=== PATIENT | male | born 1980 | race Caucasian/White ===

== ENCOUNTER 2016-10-23 14:33 | Emergency (ER) | payer OTHER ==
[~2016-10-23] VITALS: Ht 167.6 cm; Wt 88.5 kg
[~2016-10-23 14:33] MED LIST: ACTICIN 5% 60GM60 GM TOP; ALPRAZOLAM2 MG PO; AMITRIPTYLINE50 MG PO; AMPHETAMINE SAL30 MG PO; ANTIVERT 25MG #1 PAC PO; BENTYL10 MG PO; BILTRICIDE600 MG PO; ELAVIL25 MG PO; MULTIVITAMIN1 TAB PO; NEURONTIN300 MG PO; REMERON30 M1 PO; SEROQUEL 25MG25 MG PO; SUBOXONE 8 MG-21 FIL SL; ZOFRAN4 M1 SL
--- NOTE | 2016-10-23 16:21 | ED GI/GU/ABDOMINAL COMPLAINT ---
History of Present Illness General Chief Complaint: Abdominal Pain/Flank Pain Stated Complaint: ABD PAIN Source: patient Exam Limitations: no limitations Vital Signs & Intake/Output Vital Signs & Intake/Output Vital Signs Date Time Temp Pulse Resp B/P Pulse O2 O2 Flow FiO2 Ox Delivery Rate 10/23 1449 99.5 114 18 149/100 96 Room Air Room Air Allergies Coded Allergies: haloperidol (From HALDOL) (MUSCLES TIGHTEN UP, HEAD GOES BACK AND CANT TALK 03/03) trazodone (NIGHT TERRORS AND BAD ANXIETY 10/23/16) Reconcile Medications Amitriptyline HCl 150 MG TABLET 1 TAB PO QPM PAIN (Reported) Gabapentin 600 MG TABLET 1 TAB PO TID PAIN (Reported) Triage Note: TRIAGE: 36 Y/O MALE PRESENTS C/O LEFT LOWER ABDOMINAL PAIN 01/24. "KEEP IN MIND MY SCALE IS REALLY HIGH. IF IT WERE A TEN, IT'D HAVE TO BE REALLY BAD." REPORTS HISTORY OF HEPATITIS C, ASCITES, ENLARGED SPLEEN. Triage Nurses Notes Reviewed? yes Onset: Gradual Duration: week(s): (2) Timing: recent history Quality/Severity: moderate Location: left upper quadrant Radiation: no radiation Activities at Onset: none Modifying Factors: Worsens With: movement, palpation. HPI: 36 y/o male h/o HEP C, new diagnosis, positive ascites currently being worked up who presents to the ER for chief complaint of epigastric pain, ruq, luq pain starting 2 weeks ago but progressively getting worse. Also reports blood in stool. He was actually at outpatient ultrasound with a request from Dr. Hoover with a request but was told by staff that if he had pain he should come to the ER first. Denies fever or chills. Positive reflux symptoms. Denies history of alcohol, admits to previous drug use. Past History Travel History Traveled to [place] past 21 day No Medical History Any Pertinent Medical History? see below for history Neurological: NONE EENT: NONE Cardiovascular: hypertension Respiratory: NONE Gastrointestinal: NONE Hepatic: NONE Renal: NONE Musculoskeletal: NONE Psychiatric: anxiety, depression Endocrine: NONE Blood Disorders: NONE Cancer(s): NONE RIB BENDER/Reproductive: NONE History of MRSA: No History of VRE: No History of CDIFF: No Surgical History Surgical History: non-contributory Psychosocial History Who do you live with Patient/Self Services at Home None What is your primary language Korean Tobacco Use: Current Daily Use Daily Tobacco Use Amount/Type: => 5 Cigarettes daily ETOH Use: denies use Illicit Drug Use: denies illicit drug use Family History Hx Contributory? No Review of Systems Review of Systems Constitutional: Denies: chills, fever. EENTM: Reports: no symptoms. Respiratory: Reports: no symptoms. Cardiovascular: Reports: no symptoms. GI: Reports: abdominal pain, nausea. Denies: vomiting. Genitourinary: Reports: no symptoms. Musculoskeletal: Reports: no symptoms. Skin: Reports: no symptoms. Neurological/Psychological: Reports: no symptoms. Hematologic/Endocrine: Reports: bleeding. Denies: bruising, polyuria, polydipsia. Immunologic/Allergic: Denies: splenectomy. All Other Systems: Reviewed and Negative Physical Exam Physical Exam General Appearance: well developed/nourished, alert, awake, mild distress Head: atraumatic, normal appearance Eyes: Bilateral: normal appearance, PERRL. Ears, Nose, Throat, Mouth: hearing grossly normal, moist mucous membrane, ORAL THRUSH Neck: normal inspection, supple, full range of motion, NO JVD Respiratory: normal breath sounds, chest non-tender, no respiratory distress Cardiovascular: regular rate/rhythm, normal peripheral pulses Peripheral Pulses: 2+ radial (R), 2+ radial (L) Gastrointestinal: normal bowel sounds (DISTENDED), FIRM, TENDER, FULL, TTP, NO FLUID WAVE Extremities: NO EDEMA, SCABS ON LEGS Neurologic/Psych: no motor/sensory deficits, awake, alert, oriented x 3 Skin: intact, normal color, warm/dry Core Measures ACS in differential dx? No Severe Sepsis Present: No Septic Shock Present: No Progress Differential Diagnosis: biliary colic, bowel obstruction, esophageal varices, gastritis, hepatitis, pancreatitis, peptic ulcer, PUD/GERD, SBP Plan of Care: Orders Procedure Date/time Status LACTIC ACID 10/23 1921 Active CULTURE,STOOL 10/23 1711 Active OVA AND PARASITE ANTIGENS 10/23 171 Active C.DIFFICILE 10/23 1711 Active AMMONIA 10/23 1632 Complete URINE DRUGS OF ABUSE 10/23 1621 Complete URINALYSIS 10/23 1621 Complete PARTIAL THROMBOPLASTIN TIME 10/23 1621 Complete PROTHROMBIN TIME 10/23 1621 Complete LIPASE 10/23 1621 Complete LACTIC ACID 10/23 1621 Complete ETHANOL 10/23 1621 Complete COMPREHENSIVE METABOLIC PANEL 10/23 1621 Complete CBC WITHOUT DIFFERENTIAL 10/23 1620 Complete Laboratory Tests 10/23/16 1700: Ammonia < 9 L 10/23/16 1634: Serum Alcohol < 10.0 10/23/16 1634: Anion Gap 13, Estimated GFR > 60, BUN/Creatinine Ratio 13.0, Glucose 87, Lactic Acid 2.1, Calcium 10.5 H, Total Bilirubin 0.6, AST 107 H, ALT 131 H, Alkaline Phosphatase 102, Total Protein 8.8 H, Albumin 4.7, Globulin 4.1, Albumin/ Globulin Ratio 1.1, Lipase 78, PT 10.7, INR 1.02, APTT 36, CBC w Diff NO MAN DIFF REQ, RBC 6.06, MCV 82.1, MCH 27.1, RDW 13.0, MPV 7.7, Gran % 71.2, Lymphocytes % 21.6, Monocytes % 3.7, Eosinophils % 3.2, Basophils % 0.3, Absolute Granulocytes 7.5 H, Absolute Lymphocytes 2.3, Absolute Monocytes 0.4, Absolute Eosinophils 0.3, Absolute Basophils 0, PUBS MCHC 33.1, Urine Opiates Screen < 100.00, Methadone Screen 81, Barbiturate Screen < 60, Ur Phencyclidine Scrn < 6.00, Amphetamines Screen < 100, U Benzodiazepines Scrn < 85, Urine Cocaine Screen < 50, Urine Cannabis Screen < 5.00, Urine Color YEL, Urine Clarity CLEAR, Urine pH 6.5, Ur Specific [place] 1.015, Urine Protein NEG, Urine Ketones NEG, Urine Nitrite NEG, Urine Bilirubin NEG, Urine Urobilinogen 0.2, Ur Leukocyte Esterase NEG, Ur Microscopic EXAM NOT REQUIRED, Urine Hemoglobin NEG, Urine Glucose NEG Microbiology 10/23 1710 STOOL: Cryptosporidium Antigen - ORD 10/23 1710 STOOL: Giardia Antigen (JASON) - ORD 10/23 1710 STOOL: Clostridium difficile Toxin A & B - ORD 10/23 1710 STOOL: Stool Culture - ORD labs, stool cultures, ct scan ordered. (OLENA GUPTA,MIEKL) Diagnostic Imaging: Viewed by Me: CT Scan. Discussed w/RAD: CT Scan. Radiology Impression: PATIENT: MINDY MCNAIR PRESENT AGE: 36 PATIENT ACCOUNT NO: [id number] : 80 LOCATION: [facility] ORDERING PHYSICIAN: MIKEL HYATT MD SERVICE DATE: 10/23/16 EXAM TYPE: CAT - CT ABD & PELVIS W IV CONTRAST EXAMINATION: CT ABDOMEN AND PELVIS WITH CONTRAST CLINICAL INFORMATION: Diarrhea and left-sided abdominal pain. Recent diagnosis of hepatitis C. COMPARISON: None. TECHNIQUE: Multidetector volumetric imaging was performed of the abdomen and pelvis before and after the IV administration of 94 mL of Optiray 320 intravenous contrast. Sagittal and coronal reformatted images were obtained on the technologist's workstation. DLP: 364 mGy-cm FINDINGS: LUNG BASES: The visualized lung bases are unremarkable. LIVER, GALLBLADDER, AND BILIARY TREE: The liver is normal in size, shape, and attenuation. No focal hepatic lesion or biliary ductal dilatation is present. The gallbladder is unremarkable with no evidence of radiopaque gallstones, gallbladder wall thickening, or obvious pericholecystic inflammatory changes. PANCREAS: Unremarkable. SPLEEN: Unremarkable. ADRENAL GLANDS: Unremarkable. KIDNEYS AND URETERS: The kidneys are normal in size, shape, and attenuation. No hydronephrosis, hydroureter, or calculi seen. No perinephric stranding. BLADDER: Unremarkable. GASTROINTESTINAL TRACT: Normal anatomic orientation of the stomach relative to the duodenum. Normal caliber of abdominal and pelvic bowel loops, without evidence of obstruction or ileus. No circumferential bowel wall thickening with surrounding inflammatory changes to suggest an underlying infectious or inflammatory enterocolitis. Normal-appearing appendix within the right lower quadrant of the abdomen. There is no significant colonic diverticulosis. Incidental note is made of submucosal deposition of fat within the colon. No organizing intra-abdominal fluid collections or free intraperitoneal air. ABDOMINAL WALL: No significant hernia is appreciated. LYMPH NODES: No significant abdominal or pelvic adenopathy. VASCULAR: Patent abdominal vasculature. Normal course and caliber of the abdominal aorta and its branching vessels, without aneurysmal dilatation. PELVIC VISCERA: Unremarkable. OSSEOUS STRUCTURES: No acute osseous abnormality. Normal alignment of the imaged thoracolumbar spine. IMPRESSION: No acute findings within the abdomen or pelvis to explain patient symptomatology. Incidental note is made of submucosal deposition of fat within the colon. This finding is nonspecific but can be seen as a sequela of chronic infection or inflammation of the large bowel. DICTATED BY: ILIA LAUREN MD DATE/TIME DICTATED:10/23/161804 PARTNER CCO: MIRZA DATE/TIME TRANSCRIBED:04/08/17 / 1805 CONFIDENTIAL, DO NOT COPY WITHOUT APPROPRIATE AUTHORIZATION. <Electronically signed in Other Vendor System> SIGNED BY: ILIA LAUREN MD 10/23/161817 Initial ED EKG: none Departure Departure Time of Disposition: 1846 Disposition: HOME OR SELF CARE Condition: Stable Clinical Impression Primary Impression: Abdominal pain Referrals: LINH HOOVER MD (PCP/Family) Additional Instructions: Follow-up with your outpatient blood testing and with your further workup for the hepatitis. There is no acute findings on your CAT scan to explain your abdominal pain today. There is no evidence of significant free fluid on your CAT scan. Take Tylenol as needed for pain, use it only use it sparingly. Departure Forms: Customer Survey General Discharge Information
[2016-10-23 17:00] LABS: ABSOLUTE BASOPHIL COUNT 0 /CUMM (0.0-0.2); ABSOLUTE EOSINOPHIL COUNT 0.3 /CUMM (0.0-0.7); ABSOLUTE GRANULOCYTE CT 7.5 /CUMM (1.4-6.5); ABSOLUTE LYMPH COUNT 2.3 /CUMM (1.2-3.4); ABSOLUTE MONOCYTE COUNT 0.4 /CUMM (0.10-0.60); BASOPHIL % 0.3 % (0.0-2.0); EOSINOPHIL % 3.2 % (0-5); GRANULOCYTE % 71.2 % (42.2-75.2); HEMATOCRIT 49.7 % (42-52); MEAN CORPUSCULAR HGB 27.1 PG (27.0-31.0); MEAN CORPUSCULAR HGB CONC 33.1 G/DL (33.0-37.0); MEAN CORPUSCULAR VOLUME 82.1 FL (80.0-94.0); MEAN PLATELET VOLUME 7.7 FL (7.4-10.4); PLATELET COUNT 262 /CUMM (130-400); RED BLOOD CELL CT 6.06 /CUMM (4.70-6.10); WHITE BLOOD CELL COUNT 10.5 /CUMM (4.8-10.8)
[2016-10-23 17:12] LABS: PT 10.7 SEC (9.4-12.5); PTT 36 SEC (25-37)
--- NOTE | 2016-10-23 18:18 | CT SCAN REPORT ---
EXAMINATION: CT ABDOMEN AND PELVIS WITH CONTRAST CLINICAL INFORMATION: Diarrhea and left-sided abdominal pain. Recent diagnosis of hepatitis C. COMPARISON: None. TECHNIQUE: Multidetector volumetric imaging was performed of the abdomen and pelvis before and after the IV administration of 94 mL of Optiray 320 intravenous contrast. Sagittal and coronal reformatted images were obtained on the technologist's workstation. DLP: 364 mGy-cm FINDINGS: LUNG BASES: The visualized lung bases are unremarkable. LIVER, GALLBLADDER, AND BILIARY TREE: The liver is normal in size, shape, and attenuation. No focal hepatic lesion or biliary ductal dilatation is present. The gallbladder is unremarkable with no evidence of radiopaque gallstones, gallbladder wall thickening, or obvious pericholecystic inflammatory changes. PANCREAS: Unremarkable. SPLEEN: Unremarkable. ADRENAL GLANDS: Unremarkable. KIDNEYS AND URETERS: The kidneys are normal in size, shape, and attenuation. No hydronephrosis, hydroureter, or calculi seen. No perinephric stranding. BLADDER: Unremarkable. GASTROINTESTINAL TRACT: Normal anatomic orientation of the stomach relative to the duodenum. Normal caliber of abdominal and pelvic bowel loops, without evidence of obstruction or ileus. No circumferential bowel wall thickening with surrounding inflammatory changes to suggest an underlying infectious or inflammatory enterocolitis. Normal-appearing appendix within the right lower quadrant of the abdomen. There is no significant colonic diverticulosis. Incidental note is made of submucosal deposition of fat within the colon. No organizing intra-abdominal fluid collections or free intraperitoneal air. ABDOMINAL WALL: No significant hernia is appreciated. LYMPH NODES: No significant abdominal or pelvic adenopathy. VASCULAR: Patent abdominal vasculature. Normal course and caliber of the abdominal aorta and its branching vessels, without aneurysmal dilatation. PELVIC VISCERA: Unremarkable. OSSEOUS STRUCTURES: No acute osseous abnormality. Normal alignment of the imaged thoracolumbar spine. IMPRESSION: No acute findings within the abdomen or pelvis to explain patient symptomatology. Incidental note is made of submucosal deposition of fat within the colon. This finding is nonspecific but can be seen as a sequela of chronic infection or inflammation of the large bowel.
[2016-10-23] MEDS ORDERED: GABAPENTIN600 M1 PO (18:42)
[2016-10-23] MEDS ORDERED: AMITRIPTYLINE150 M2 PO (18:42)
[2016-10-23 18:52] VITALS: BP 128/87
== END 2016-10-23 19:01 ==
LOC: ERH 14:33
PROVIDERS: Emergency Medicine
DX: R10.13 Epigastric pain (principal)
CPT/HCPCS: 74177; 80307; 81003; 87045; 87328; 87329; G0480

== ENCOUNTER 2018-01-17 19:15 | Inpatient (IN) | payer OTHER ==
[~2018-01-17] VITALS: Ht 167.6 cm; Wt 72.6 kg
[~2018-01-17 19:15] MED LIST changes: +AMITRIPTYLINE150 M2 PO; +GABAPENTIN600 M1 PO
[2018-01-17 20:02] LABS: ABSOLUTE BASOPHIL COUNT 0 /CUMM (0.0-0.2); ABSOLUTE EOSINOPHIL COUNT 0.1 /CUMM (0.0-0.7); ABSOLUTE GRANULOCYTE CT 7.5 /CUMM (1.4-6.5); ABSOLUTE LYMPH COUNT 0.5 /CUMM (1.2-3.4); ABSOLUTE MONOCYTE COUNT 0 /CUMM (0.10-0.60); BASOPHIL % 0 % (0.0-2.0); EOSINOPHIL % 1.4 % (0-5); GRANULOCYTE % 91.9 % (42.2-75.2); HEMATOCRIT 43.9 % (42-52); MEAN CORPUSCULAR HGB 27.1 PG (27.0-31.0); MEAN CORPUSCULAR HGB CONC 33.6 G/DL (33.0-37.0); MEAN CORPUSCULAR VOLUME 80.8 FL (80.0-94.0); MEAN PLATELET VOLUME 7.9 FL (7.4-10.4); PLATELET COUNT 253 /CUMM (130-400); RBC DISTRIBUTION WIDTH 13.5 % (11.5-14.5); RED BLOOD CELL CT 5.43 /CUMM (4.70-6.10); WHITE BLOOD CELL COUNT 8.1 /CUMM (4.8-10.8)
--- NOTE | 2018-01-17 21:35 | CT SCAN REPORT ---
EXAMINATION: CT HEAD WITHOUT CONTRAST CLINICAL INFORMATION: Patient found unresponsive. COMPARISON: None TECHNIQUE: Contiguous axial imaging was performed from the skull base to vertex without intravenous administration of contrast. DLP: 612.13 mGy-cm FINDINGS: There is no evidence of acute intracranial hemorrhage or territorial infarction. No abnormal mass effect or midline shift is seen. [place] to white matter differentiation is well preserved. No extra-axial fluid collections are identified. The ventricles are normal in size. There is no abnormal attenuation within the brain parenchyma. The osseous structures and soft tissues are normal. The mastoid air cells are well aerated. There is moderate mucosal thickening in the ethmoid sinus air cells. There is a minimal amount of fluid in the sphenoid sinuses. IMPRESSION: No acute intracranial pathology. Moderate ethmoid sinus mucosal thickening. Trace dependent fluid in the sphenoid sinuses.
--- NOTE | 2018-01-17 21:40 | RADIOLOGY REPORT ---
EXAMINATION: XR PORTABLE CHEST CLINICAL INFORMATION: Fever. COMPARISON: None TECHNIQUE: Single frontal portable of the chest was obtained. FINDINGS: No airspace opacities or pleural effusions are seen. Mild hypoventilatory changes noted. The cardiomediastinal silhouette is normal. No acute osseous abnormality is seen. IMPRESSION: Mild hypoventilatory changes in the lungs. Otherwise, no acute process.
--- NOTE | 2018-01-17 23:06 | ED GENERAL ADULT ---
History of Present Illness General Chief Complaint: Altered Mental Status Stated Complaint: UNRESPONSIVE/OD Source: patient, EMS Exam Limitations: intoxication Vital Signs & Intake/Output Vital Signs & Intake/Output Vital Signs Date Time Temp Pulse Resp B/P B/P Pulse O2 O2 Flow FiO2 Mean Ox Delivery Rate 01/18 0017 98.4 82 18 98/56 100 Room Air 01/18 2236 100.6 01/18 2228 100.6 88 18 92/54 96 Room Air 01/17 2047 102.0 98 20 103/58 98 Room Air 01/18 2016 100.6 108 18 98/56 99 Room Air 01/17 2010 104.3 01/17 195 Room Air 01/17 1933 104.3 104 22 95/53 98 Room Air ED Intake and Output 01/18 0000 01/17 1200 Intake Total 3250 Output Total Balance 3250 Intake, IV 3250 Allergies Coded Allergies: haloperidol (From HALDOL) (MUSCLES TIGHTEN UP, HEAD GOES BACK AND CANT TALK 03/03) trazodone (NIGHT TERRORS AND BAD ANXIETY 10/23/16) Reconcile Medications Amitriptyline HCl 150 MG TABLET 1 TAB PO QPM PAIN (Reported) Gabapentin 600 MG TABLET 1 TAB PO TID PAIN (Reported) Triage Note: PT BIBA AFTER BEING FOUND LYING UNCONSCIOUS IN THE GRASS FOR AN UNKNOWN AMOUNT OF TIME. EMS REPORTS THAT PT WAS FULLY UNRESPONSIVE UNTIL HE RECEIVED 2 INTRANASAL NARCAN x2. AFTER MEDICATION, PT AWAKE AND ANXIOUS, AGITATED WITH ALL CARE. HYPOTENSIVE AND TACHYCARDIC. ON ARRIVAL, PT RESTLESS AND TEARFUL WITH CARE. STATING THAT QUESTIONS MAKE HIM ANXIOUS. ALL CLOTHING SOAKED IN ?SWEAT/URINE. PT ARRIVES WIT #20 IN LH, IV NS RUNNING. REMAINS TACHYCARDIC. RECTAL TEMP ON ARRIVAL 104.3 Triage Nurses Notes Reviewed? yes Onset: Gradual Duration: hour(s): Timing: constant HPI: 38-year-old male with a history of IV drug abuse, anxiety, depression, hypertension brought in by ambulance after being found unresponsive. Patient was found lying on the ground unresponsive, was given 4 mg of intranasal Narcan, with immediate arousal. Patient endorses using IV heroin and po fentanyl today, but is unable to specify how much use. Denies drug use. Denies SI or HI, states this overdose was accidental and not intentional. On arrival to the emergency Department patient is alert and oriented 3, is noted to be febrile to 104 Fahrenheit. Patient denies any recent URI symptoms, cough, sputum, chest pain, shortness of breath, abdominal pain, nausea, vomiting, diarrhea, dysuria. (Tabitha Malone) Past History Travel History Traveled to [place] past 21 day No Medical History Any Pertinent Medical History? see below for history Neurological: NONE EENT: NONE Cardiovascular: hypertension Respiratory: NONE Gastrointestinal: NONE Hepatic: NONE Renal: NONE Musculoskeletal: NONE Psychiatric: anxiety, depression Endocrine: NONE Blood Disorders: NONE Cancer(s): NONE CREDENTIALING COORDINATOR/Reproductive: NONE History of MRSA: No History of VRE: No History of CDIFF: No Surgical History Surgical History: non-contributory Psychosocial History Who do you live with Patient/Self Services at Home None What is your primary language Afghan Tobacco Use: Current Daily Use Daily Tobacco Use Amount/Type: => 5 Cigarettes daily Illicit Drug Use: UTD Family History Hx Contributory? No (Tabitha Malone) Review of Systems Review of Systems Constitutional: Reports: see HPI. EENTM: Reports: no symptoms. Respiratory: Reports: no symptoms. Cardiovascular: Reports: no symptoms. GI: Reports: no symptoms. Genitourinary: Reports: no symptoms. Musculoskeletal: Reports: no symptoms. Skin: Reports: no symptoms. Neurological/Psychological: Reports: see HPI. Hematologic/Endocrine: Reports: no symptoms. Immunologic/Allergic: Reports: no symptoms. (Tabitha Malone) Physical Exam Physical Exam General Appearance: well developed/nourished, alert, awake, agitated Head: atraumatic, normal appearance Eyes: Bilateral: normal appearance, PERRL, EOMI. Ears, Nose, Throat: normal ENT inspection Neck: normal inspection, full range of motion, no midline tenderness Respiratory: normal breath sounds, chest non-tender, lungs clear Cardiovascular: regular rate/rhythm Gastrointestinal: soft, non-tender Back: normal inspection, normal range of motion, no vertebral tenderness Extremities: normal range of motion, erythemato the anterior right thigh with peeling and crusting of the epidermis, no induration or fluctuance, the right lower extremity is neurovascularly intact Neurologic/Psych: awake, alert, oriented x 3, normal gait, normal mood/affect Skin: warm/dry Core Measures ACS in differential dx? No CVA/TIA Diagnosis: No Sepsis Present: No Sepsis Focused Exam Completed? No (Genie BURR,Tabitha) Progress Differential Diagnoses I considered the following diagnoses in my evaluation of the patient: [ Cellulitis versus pneumonia versus UTI versus sepsis versus dehydration versus opiate overdose, low concern for SI versus trauma] Plan of Care: Orders Procedure Date/time Status Regular Diet 01/18 B Active Misc Message 01/19 24 Active ED Holding Orders 01/19 24 Active Admit to inpatient 01/19 24 Active Vital Signs 01/19 24 Active Code Status 01/19 24 Active LACTIC ACID 01/18 2232 Complete Add-on Test (ER Only) 01/17 2058 Active Patient Safety Monitor 01/17 1946 Complete CULTURE,URINE 01/18 1932 Active BLOOD CULTURE 01/18 1932 Active URINE DRUGS OF ABUSE 01/18 1932 Complete URINALYSIS 01/18 1932 Complete TROPONIN LEVEL 01/18 1932 Complete LACTIC ACID 01/18 1932 Complete ETHANOL 01/18 1932 Complete COMPREHENSIVE METABOLIC PANEL 01/18 1932 Complete CREATINE PHOSPHOKINASE 01/18 1932 Complete CBC WITHOUT DIFFERENTIAL 01/18 1932 Complete EKG 01/18 1932 Active Laboratory Tests 01/17/181: Lactic Acid 0.9 01/17/181944: CBC w Diff NO MAN DIFF REQ, RBC 5.43, MCV 80.8, MCH 27.1, MCHC 33.6, RDW 13.5, MPV 7.9, Gran % 91.9 H, Lymphocytes % 6.3 L, Monocytes % 0.4 L, Eosinophils % 1.4, Basophils % 0, Absolute Granulocytes 7.5 H, Absolute Lymphocytes 0.5 L, Absolute Monocytes 0 L, Absolute Eosinophils 0.1, Absolute Basophils 0, Urine Opiates Screen > 4000.00 H, Methadone Screen 126, Barbiturate Screen < 60, Ur Phencyclidine Scrn < 6.00, Amphetamines Screen > 1450 H, U Benzodiazepines Scrn < 85, Urine Cocaine Screen < 50, Urine Cannabis Screen < 5.00, Urinalysis MOD H , Urine Color YEL, Urine Clarity CLEAR, Urine pH 6.0, Ur Specific [place] 1.025, Urine Protein TRACE H, Urine Ketones NEG, Urine Nitrite NEG, Urine Bilirubin NEG, Urine Urobilinogen 0.2, Ur Leukocyte Esterase NEG, Ur Microscopic SEDIMENT EXAMINED, Urine WBC RARE, Ur Epithelial Cells FEW, Hyaline Casts FEW H, Urine Mucus FEW, Urine Hemoglobin NEG, Urine Glucose NEG 01/17/181931: Anion Gap 13, Estimated GFR > 60, BUN/Creatinine Ratio 11.7, Glucose 92, Lactic Acid 3.2 H, Calcium 10.2, Total Bilirubin 0.5, AST 112 H, ALT 78 H, Alkaline Phosphatase 88, Creatine Kinase 64, Troponin I < 0.01, Total Protein 8.0, Albumin 4.3, Globulin 3.7, Albumin/Globulin Ratio 1.2, Serum Alcohol < 10.0 Microbiology 01/17 1945 URINE ROUT: Urine Culture - RECD 01/17 1945 BLOOD: Blood Culture - RECD 01/17 1930 BLOOD: Blood Culture - RECD Chest x-ray and UA were not concerning for infection. Patient source of fever is likely cellulitis that is noticed on exam. Patient was covered with vancomycin. Although, I recommend patient get an inpatient echocardiogram to rule out endocarditis given his history of IV drug use. Initial lactate was elevated to 3.2, patient was given 2 L of normal saline, and repeat lactate is within normal limits. Patient has had soft pressures with systolic BPs in the 90s, low concern for sepsis, blood cultures were sent. CT head was negative for acute injury. Urine was positive for opiates and amphetamines. Check CK level given patient's amphetamine use, but was within normal limits Patient remains easily arousable, alert, and oriented. Discussed with the hospitalist and will admit to [facility]. Initial ED EKG: NSR, no ST T wave changes (Tabitha Malone) Departure Departure Disposition: STILL A PATIENT Condition: Stable Clinical Impression Primary Impression: Opiate overdose Secondary Impressions: Cellulitis Referrals: Nena Rice MD (PCP/Family) Departure Forms: Customer Survey General Discharge Information Admission Note Spoke With: Sharath Garnica MD Documentation of Exam: Documentation of any treatments & extenuating circumstances including Concerns Regarding Discharge (functional status, medication knowledge or non-compliance, living conditions, etc.) that warrant an admission rather than observation: [ Hemodynamic monitoring, IV antibiotics, IV fluids, follow-up blood cultures and narrow antibiotics is appropriate, inpatient echo cardiogram] (Tabitha Malone) PA/USED CAR RENOVATOR Co-Sign Statement Statement: ED Attending supervision documentation- [X] I saw and evaluated the patient. I have also reviewed all the pertinent lab results and diagnostic results. I agree with the findings and the plan of care as documented in the PA's/USED CAR RENOVATOR's documentation. Patient presented after an unresponsive episode prehospital. After initial stabilization in the emergency department the patient is now resting comfortably on the stretcher in no apparent respiratory distress. [] I have reviewed the ED Record and agree with the PA's/USED CAR RENOVATOR's documentation. [] Additions or exceptions (if any) to the PAs/USED CAR RENOVATOR's note and plan are summarized below: [] (Irina GUPTA,Fahda Jackson) Critical Care Note Critical Care Note Critical Care Time: non-applicable (Tabihta Malone)
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
[2018-01-18] MEDS ORDERED: PROPRANOLOL HC160 M1 PO (02:23)
[2018-01-18] MEDS ORDERED: MYDAYIS ER 3737.5 MG PO (02:26)
--- NOTE | 2018-01-18 02:35 | Admission Certification ---
Admission Certification Certification Statement - As attending physician, I certify that at the time of - admission, based on clinical presentation, severity of - symptoms, need for further diagnostic testing and - therapeutic interventions, and risk of adverse outcomes - without in-hospital treatment, in my clinical assessment, - this patient requires an acute hospital stay for a minimum - of two nights or longer. I have also considered psychsocial - factors such as support system, advanced age, financial - issues, cognitive issues, and failed out-patient treatments, - past re-admission history, safety of patient, and lack of - compliance as applicable. Specific rationale supporting this admission is: Fever 104 with elevated lactate
[2018-01-18 02:41] VITALS: BP 96/58
[2018-01-18 06:20] VITALS: BP 140/70; BP 94/56
[2018-01-18 08:28] LABS: ABSOLUTE BASOPHIL COUNT 0 /CUMM (0.0-0.2); ABSOLUTE EOSINOPHIL COUNT 0.1 /CUMM (0.0-0.7); ABSOLUTE LYMPH COUNT 1.9 /CUMM (1.2-3.4); ABSOLUTE MONOCYTE COUNT 0.8 /CUMM (0.10-0.60); BASOPHIL % 0.3 % (0.0-2.0); EOSINOPHIL % 0.7 % (0-5); GRANULOCYTE % 79.6 % (42.2-75.2); MEAN CORPUSCULAR VOLUME 81.9 FL (80.0-94.0); MEAN PLATELET VOLUME 8.3 FL (7.4-10.4); PLATELET COUNT 194 /CUMM (130-400); RBC DISTRIBUTION WIDTH 13.9 % (11.5-14.5); RED BLOOD CELL CT 4.43 /CUMM (4.70-6.10)
[2018-01-18 08:52] LABS: HEMATOCRIT 36.3 % (42-52); WHITE BLOOD CELL COUNT 13.9 /CUMM (4.8-10.8)
--- NOTE | 2018-01-18 09:00 | PN- Housestaff ---
Subjective Follow-up For: Opioid Overdose Complaints: pain scale (0-10) Subjective: Patient was seen and examined at bedside. Patient has no complaint of, stating that he is very tired and would like to sleep. Patient has been tolerating his diet, denies nausea vomiting. has not had bowel movement today. Review of Systems Constitutional: Reports: no symptoms. EENTM: Denies: eye drainage. Cardiovascular: Denies: chest pain, palpitations. Respiratory: Denies: cough, short of breath. Gastrointestinal: Denies: abdominal pain, constipation, diarrhea, nausea, vomiting. Musculoskeletal: Denies: muscle pain. Neurological/Psychological: Denies: anxiety, depressed, headache, numbness, paresthesia, tremors. Objective Last 24 Hrs of Vital Signs/I&O Vital Signs Date Time Temp Pulse Resp B/P B/P Pulse O2 O2 Flow FiO2 Mean Ox Delivery Rate 01/18 1500 97.9 69 20 92/60 96 Room Air 01/18 0620 98.2 68 16 94/56 98 Room Air 01/18 0241 98.0 73 18 96/58 96 Room Air 01/18 0017 98.4 82 18 98/56 100 Room Air 01/17 2236 100.6 / 2228 100.6 88 18 92/54 96 Room Air 01/17 2047 102.0 98 20 103/58 98 Room Air 01/18 2016 100.6 108 18 98/56 99 Room Air 01/17 2010 104.3 / 1951 Room Air 01/17 1933 104.3 104 22 95/53 98 Room Air Intake & Output 01/18 1600 / 0800 01/18 0000 Intake Total 1200 0 3250 Output Total 0 Balance 1200 0 3250 Intake, IV 3250 Intake, Oral 1200 0 Number Bowel Movements Output, Urine 0 Patient 160 lb Weight Weight Reported by Patient Measurement Method Physical Exam General Appearance: Alert, Oriented X3, Cooperative Skin: Patient has a lesion on right thigh which is in the final stages of healing. No erythema, warmth, tenderness appreciated. Skin Temp/Moisture Exam: Warm/Dry HEENT: Atraumatic, PERRLA, EOMI Neck: Supple, No thryomegaly, No LAD Cardiovascular: Regular Rate, Normal S1, Normal S2 Lungs: Clear to Auscultation, Normal Air Movement Abdomen: Normal Bowel Sounds, Soft, No Tenderness Neurological: Normal Speech, Impaired heel to toe walk, gait imbalance, Unable to dorsiflex right foot, decreased sensation over medial-dorsal surface of right foot. Extremities: No Cyanosis, No Edema, Normal Pulses Assessment/Plan Assessment: Patient is a 38-year-old male with a past medical history of IV drug abuse anxiety and depression, brought into the hospital by EMS. Patient is unable to recall where he was transported from, or how he got there. Patient became coherent after arriving to [facility], had recieved Narcan enroute to [facility]. #Opioid Overdose given Narcan and became coherent shortly afterwards. Plan: -Psychiatry consult #Right Foot Drop Neuro vs Vasculitis- History of Hep C, it is possible to have vasculitis secondary to cryoglobulinemia leading to right foot drop Plan: F/u cryoglobulins. Problem List: 1. Opiate overdose Pain Ratin Pain Location: N/A Pain Goal: Remain pain free Pain Plan: N/A Tomorrow's Labs & Rationales: none
--- NOTE | 2018-01-18 13:44 | PN- Att Addend ---
Attending Addendum Attending Brief Note Patient seen and examined, he was sleeping but arousable. Denies any complaints. Patient is admitted to drug overdose. EMS found him unresponsive that he was awakened after received Narcan. Vital Signs Date Time Temp Pulse Resp B/P B/P Pulse O2 O2 Flow FiO2 Mean Ox Delivery Rate 01/19 620 98.2 68 16 94/56 98 Room Air 01/18 0241 98.0 73 18 96/58 96 Room Air 01/18 0017 98.4 82 18 98/56 100 Room Air 01/17 223 100.6 01/18 2228 100.6 88 18 92/54 96 Room Air 01/17 204 102.0 98 20 103/58 98 Room Air 01/18 2016 100.6 108 18 98/56 99 Room Air 01/17 2010 104.3 01/17 1951 Room Air 01/17 193 104.3 104 22 95/53 98 Room Air on exam; aox3, nad. cv; s1,s2, rrr resp; clear abd; soft, nt, bs+ ext; no edema Laboratory Tests 01/18 01/18 01/17 0945 0745 2221 Chemistry Sodium (137 - 145 mmol/L) 144 Potassium (3.5 - 5.1 mmol/L) 4.4 Chloride (98 - 107 mmol/L) 112 H Carbon Dioxide (22 - 30 mmol/L) 23 Anion Gap (5 - 16) 9 BUN (9 - 20 mg/dL) 18 Creatinine (0.7 - 1.2 mg/dL) 0.9 Estimated GFR (>60 ml/min) > 60 BUN/Creatinine Ratio (7 - 25 %) 20.0 Lactic Acid (0.7 - 2.1 mmol/L) 0.9 Hematology CBC w Diff NO MAN DIFF REQ WBC (4.8 - 10.8 /CUMM) 13.9 H RBC (4.70 - 6.10 /CUMM) 4.43 L Hgb (14.0 - 18.0 G/DL) 12.0 L Hct (42 - 52 %) 36.3 L MCV (80.0 - 94.0 FL) 81.9 MCH (27.0 - 31.0 PG) 27.0 MCHC (33.0 - 37.0 G/DL) 33.0 RDW (11.5 - 14.5 %) 13.9 Plt Count (130 - 400 /CUMM) 194 MPV (7.4 - 10.4 FL) 8.3 Gran % (42.2 - 75.2 %) 79.6 H Lymphocytes % (20.5 - 51.1 %) 13.4 L Monocytes % (1.7 - 9.3 %) 6.0 Eosinophils % (0 - 5 %) 0.7 Basophils % (0.0 - 2.0 %) 0.3 Absolute Granulocytes (1.4 - 6.5 /CUMM) 11.0 H Absolute Lymphocytes (1.2 - 3.4 /CUMM) 1.9 Absolute Monocytes (0.10 - 0.60 /CUMM) 0.8 H Absolute Eosinophils (0.0 - 0.7 /CUMM) 0.1 Absolute Basophils (0.0 - 0.2 /CUMM) 0 Immunology Cryoglobulin Interp Pending 01/17 1932 Chemistry Sodium (137 - 145 mmol/L) 144 Potassium (3.5 - 5.1 mmol/L) 4.0 Chloride (98 - 107 mmol/L) 108 H Carbon Dioxide (22 - 30 mmol/L) 23 Anion Gap (5 - 16) 13 BUN (9 - 20 mg/dL) 14 Creatinine (0.7 - 1.2 mg/dL) 1.2 Estimated GFR (>60 ml/min) > 60 BUN/Creatinine Ratio (7 - 25 %) 11.7 Glucose (65 - 99 mg/dL) 92 Lactic Acid (0.7 - 2.1 mmol/L) 3.2 H Calcium (8.4 - 10.2 mg/dL) 10.2 Total Bilirubin (0.2 - 1.3 mg/dL) 0.5 AST (17 - 59 U/L) 112 H ALT (21 - 72 U/L) 78 H Alkaline Phosphatase (< 127 U/L) 88 Creatine Kinase (55 - 170 U/L) 64 Troponin I (<0.11 ng/ml) < 0.01 Total Protein (6.3 - 8.2 g/dL) 8.0 Albumin (3.5 - 5.0 g/dL) 4.3 Globulin (1.9 - 4.2 gm/dL) 3.7 Albumin/Globulin Ratio (1.1 - 2.2 %) 1.2 Hematology CBC w Diff NO MAN DIFF REQ WBC (4.8 - 10.8 /CUMM) 8.1 RBC (4.70 - 6.10 /CUMM) 5.43 Hgb (14.0 - 18.0 G/DL) 14.7 Hct (42 - 52 %) 43.9 MCV (80.0 - 94.0 FL) 80.8 MCH (27.0 - 31.0 PG) 27.1 MCHC (33.0 - 37.0 G/DL) 33.6 RDW (11.5 - 14.5 %) 13.5 Plt Count (130 - 400 /CUMM) 253 MPV (7.4 - 10.4 FL) 7.9 Gran % (42.2 - 75.2 %) 91.9 H Lymphocytes % (20.5 - 51.1 %) 6.3 L Monocytes % (1.7 - 9.3 %) 0.4 L Eosinophils % (0 - 5 %) 1.4 Basophils % (0.0 - 2.0 %) 0 Absolute Granulocytes (1.4 - 6.5 /CUMM) 7.5 H Absolute Lymphocytes (1.2 - 3.4 /CUMM) 0.5 L Absolute Monocytes (0.10 - 0.60 /CUMM) 0 L Absolute Eosinophils (0.0 - 0.7 /CUMM) 0.1 Absolute Basophils (0.0 - 0.2 /CUMM) 0 Toxicology Urine Opiates Screen (>2000 NG/ML) > 4000.00 H Methadone Screen (>300 NG/ML) 126 Barbiturate Screen (>200 NG/ML) < 60 Ur Phencyclidine Scrn (>25 NG/ML) < 6.00 Amphetamines Screen (>1000 NG/ML) > 1450 H U Benzodiazepines Scrn (>200 NG/ML) < 85 Urine Cocaine Screen (>300 NG/ML) < 50 Urine Cannabis Screen (>50 NG/ML) < 5.00 Serum Alcohol (<10 MG/DL) < 10.0 Urines Urinalysis MOD H Urine Color (YEL,AMB,STR) YEL Urine Clarity (CLEAR) CLEAR Urine pH (5.0 - 8.0) 6.0 Ur Specific [place] (1.001 - 1.035) 1.025 Urine Protein (NEG,<30 MG/DL) TRACE H Urine Ketones (NEG) NEG Urine Nitrite (NEG) NEG Urine Bilirubin (NEG) NEG Urine Urobilinogen (0.1 - 1.0 EU/dl) 0.2 Ur Leukocyte Esterase (NEG) NEG Ur Microscopic SEDIMENT EXAMINED Urine WBC (0 - 2 /HPF) RARE Ur Epithelial Cells (NONE,FEW) FEW Hyaline Casts (0/LPF) FEW H Urine Mucus (FEW,NONE) FEW Urine Hemoglobin (NEG) NEG Urine Glucose (N MG/DL) NEG A/P; 38 y/o M with pmh sig for IV drug abuse, anxiety, and depression, admitted with unresponsiveness and drug overdose. Patient received Narcan and woke up. He was also found to be febrile with a fever of up to 104.If infection has been identified yet. Patient does have some leukocytosis today. Now afebrile and has been watched off antibiotics. Continue to watch off antibiotics. Continue the current medications and patient will need psychiatric evaluation. In the emergency room he had denied any SI or HI. DVT px; Lovenox.
[2018-01-18 15:00] VITALS: BP 92/60
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
[2018-01-18 21:53] VITALS: BP 126/88
[2018-01-19 06:27] VITALS: BP 130/84
--- NOTE | 2018-01-19 07:17 | PN- Housestaff ---
Aura Martinez 01/19/18 0717: Subjective Follow-up For: Opioid Overdose Complaints: no complaints Subjective: Patient seen and examined at bedside. Patient has no complaint of today, denies suicidal ideation, is requesting something for anxiety. Review of Systems Constitutional: Denies: chills, diaphoresis. Cardiovascular: Denies: chest pain, palpitations. Respiratory: Denies: cough, hemoptysis. Gastrointestinal: Denies: abdominal pain, constipation, diarrhea, vomiting. Objective Last 24 Hrs of Vital Signs/I&O Vital Signs Date Time Temp Pulse Resp B/P B/P Pulse O2 O2 Flow FiO2 Mean Ox Delivery Rate 01/19 1414 98.5 68 20 152/90 99 01/19 1019 60 150/70 01/19 0627 97.9 72 20 130/84 98 Room Air 01/18 2153 98.2 62 18 126/88 98 Intake & Output 01/19 1600 01/19 0800 07 0000 Intake Total 610 200 200 Output Total 400 Balance 210 200 200 Intake, IV 250 Intake, Oral 360 200 200 Number 1 Bowel Movements Output, Urine 400 Physical Exam General Appearance: Alert, Oriented X3, Cooperative Skin: No Rashes HEENT: Atraumatic, PERRLA, EOMI Neck: Supple, No LAD Cardiovascular: Regular Rate, Normal S1, Normal S2 Lungs: Clear to Auscultation, Normal Air Movement Abdomen: Normal Bowel Sounds, Soft, No Tenderness Neurological: Normal Speech, Right foot unable to dorsiflex, decreased sensation over right medio-dorsal surface of foot. Extremities: No Clubbing, No Cyanosis, No Edema, healed lesion on right thigh Assessment/Plan Assessment: Patient is a 38-year-old male with a past medical history of IV drug abuse anxiety and depression, brought into the hospital by EMS. Patient is unable to recall where he was transported from, or how he got there. Patient became coherent after arriving to [facility], had recieved Narcan enroute to [facility]. #Leukocytosis Elevated WBC (13.9), Elevated Temp on presentation (104.3F). Source of fever is unclear, heat stroke vs infectious. Patient has Postive blood culture for Coag. Negative Staph. Plan: - HIV testing- due to history of IVDA - Echocardiogram #Opioid Overdose given Narcan and became coherent shortly afterwards. Positive for opiates and methamphetamines. Plan: -Patient seen by psych., will reasses patient - PRN Atarax, Bentyl, Clonidine, for withdrawal symptoms #Right Foot Drop Neuro vs Vasculitis- History of Hep C, it is possible to have vasculitis secondary to cryoglobulinemia leading to right foot drop Plan: F/u cryoglobulins. Problem List: 1. Opiate overdose Pain Ratin Pain Location: N/A Pain Goal: Remain pain free Pain Plan: N/A Tomorrow's Labs & Rationales: None DVT/Prophylaxis: pharmacological Mc Warren MD 01/19/18 1551: Attending MD Review Statement Attending Statement Attending MD Statement: examined this patient, discuss w/resident/PA/PRESS MAINTAINER, agreed w/resident/PA/PRESS MAINTAINER, reviewed EMR data (avail), discussed with nursing, discussed with case mgmt, amended to note Attending Assessment/Plan: The patient was seen and discussed with house staff, nursing, and case management. BC was positive for GPC and Vanco started. Later identified as coag neg staph and ID suggested watch off of antibiotics. PRN meds for opioid withdrawal started (Bentyl, Ibuprofen, Clonidine, Hydroxazine, etc.).
[2018-01-19 09:00] LABS: ABSOLUTE BASOPHIL COUNT 0 /CUMM (0.0-0.2); ABSOLUTE EOSINOPHIL COUNT 0.2 /CUMM (0.0-0.7); ABSOLUTE GRANULOCYTE CT 5.3 /CUMM (1.4-6.5); ABSOLUTE LYMPH COUNT 1.5 /CUMM (1.2-3.4); ABSOLUTE MONOCYTE COUNT 0.3 /CUMM (0.10-0.60); BASOPHIL % 0.5 % (0.0-2.0); EOSINOPHIL % 2.6 % (0-5); GRANULOCYTE % 72.1 % (42.2-75.2); HEMATOCRIT 36.1 % (42-52); MEAN CORPUSCULAR HGB 27.3 PG (27.0-31.0); MEAN CORPUSCULAR HGB CONC 33.2 G/DL (33.0-37.0); MEAN PLATELET VOLUME 8.7 FL (7.4-10.4); PLATELET COUNT 206 /CUMM (130-400); RBC DISTRIBUTION WIDTH 14.4 % (11.5-14.5); WHITE BLOOD CELL COUNT 7.3 /CUMM (4.8-10.8)
--- NOTE | 2018-01-19 11:17 | PN- Psychiatry ---
Assessment/Plan Impression: P admitted post unintentional opiate overdose. Pt ws previously a regular heroin user but recently has reduced his use to once every week or so. He used one bag of heroin prior to admission and did not believe it was possible to OD on this amount. He has a job and his own apartment. He is not suicidal or homicidal and there are no psychotic symptoms. No acute psychiatric illness. Opiate dependence with unintentional overdose. Limited community supports. Had a sponsor at but has dropped contact wih this organization. relaizes that he needs to reconnect and intends to do so. Suggestion: 1. Explained risks of overdose when using infrequently from various sources 2 Discussed his ongoing addiction and challenged the thinking of having it in control 3. Pt will reconnect with 4. Has outpt psychiatrist that he will follow up with on dischare Tommie scott for consulting us on this patient. Psychiatry will sign off for now. Please reconsult if we can be of any further assistance. Subjective Subjective: Describes unintentional overdose in the context of reduced but ongoing heroin use. Not a suicide atempt per his report. Glad to be alve and frightened by realization of the risks he takes ezch time he uses. Motivated for sobriety. Objective Last 24 Hrs of Vital Signs/I&O Vital Signs Date Time Temp Pulse Resp B/P B/P Pulse O2 O2 Flow FiO2 Mean Ox Delivery Rate 01/19 1019 60 150/70 01/19 0627 97.9 72 20 130/84 98 Room Air 01/18 2153 98.2 62 18 126/88 98 01/18 1500 97.9 69 20 92/60 96 Room Air Intake & Output 01/19 1600 01/19 0800 01/19 0000 Intake Total 200 200 Output Total Balance 200 200 Intake, Oral 200 200 Physical Exam: Alert and oriented x 3. Gait not assessed. VS normal. Eye contact good. Speech normal in rate, rhythm, volume and tone. Mood "ok" affect flat but reactive. Not suicidal or homicidal. Thought process normal in rate, rhythm, volume and tone. No delusions or obsessions. Attention and concentration good. No perceptual abnormality. Impulse control good. Intelligence level average, use of language appropriate, fund of knowledge average. Recent and remote memory intact. Insight good, judgement unimpaired.
[2018-01-19 14:14] VITALS: BP 152/90
--- NOTE | 2018-01-19 15:43 | Cons- Infect Disease ---
General Information and HPI Consulting Request Date of Consult: 01/19/18 Requested By: Mc Warren MD Reason for Consult: Positive blood culture for gram-positive cocci in clusters Source of Information: patient History of Present Illness: This is a 38-year-old man with a history of hypertension, anxiety, depression, active IV drug abuse, reportedly HIV negative and Hepatitis C positive, admitted on January 17 after he was found lying unconscious in the grass, following IV drug abuse early in the day, with improvement after receiving 2 intranasal Narcans. On admission he was febrile to 104.3, with a blood pressure of 95/53 and a heart rate of 104. Laboratory data revealed a white blood cell count of 8000, BUN/ creatinine 14 and 1.2, lactic acid 3.2, AST/ALT 112 and 78. Urinalysis rare WBCs. Urine tox screen was positive for greater than 1450 ng/mL of amphetamines and greater than 4000 ng/mL of opiates/morphine. Chest x-ray was negative. CT of the head was negative for any acute process. He was followed off antibiotics and has remained afebrile for the past 36 hours. On January 18 blood culture was reported positive for gram-positive cocci in clusters, which has been identified as a coag negative Staph. At present he does not report any complaints. Allergies/Medications Allergies: Coded Allergies: haloperidol (From HALDOL) (MUSCLES TIGHTEN UP, HEAD GOES BACK AND CANT TALK 03/03) trazodone (NIGHT TERRORS AND BAD ANXIETY 10/23/16) Home Med List: Amitriptyline HCl 150 MG TABLET 1 TAB PO QPM PAIN (Reported) Dextroamphetamine/Amphetamine (Mydayis ER 37.5 MG Capsule) 37.5 MG CPTP.24HR 1 CAP PO QPM ADHD (Reported) Gabapentin 600 MG TABLET 1 TAB PO TID PAIN (Reported) Propranolol HCl (Propranolol HCl ER) 160 MG CAP.SA.24H 1 TAB PO AT BEDTIME BP (Reported) Past History Travel History Traveled to [place] past 21 day No Medical History Blood Transfusion Hx: No Neurological: NONE EENT: NONE Cardiovascular: hypertension Respiratory: NONE Gastrointestinal: NONE Hepatic: NONE Renal: NONE Musculoskeletal: NONE Psychiatric: anxiety, depression Endocrine: NONE Blood Disorders: NONE Cancer(s): NONE CHILDREN'S LIBRARIAN/Reproductive: NONE History of MRSA: No History of VRE: No History of CDIFF: No Isolation History: Standard Surgical History Surgical History: non-contributory Family History Relations & Conditions If Any: MOTHER FHx: lung cancer Psychosocial History Where Do You Live? Home Who Do You Live With? with friends Services at Home: None Primary Language: [place] Citizen Smoking Status: Current Everyday Smoker Illicit Drug Use: UTD Functional Ability ADLs Independent: dressing, eating, toileting, bathing. Ambulation: independent IADLs Independent: shopping, housework, finances, food prep, telephone, transportation , medication admin. Review of Systems Review of Systems Neurological/Psychological: Reports: weakness (right plantar flexion). All Other Systems: Reviewed and Negative Exam & Diagnostic Data Last 24 Hrs of Vital Signs/I&O Vital Signs Date Time Temp Pulse Resp B/P B/P Pulse O2 O2 Flow FiO2 Mean Ox Delivery Rate 01/19 1414 98.5 68 20 152/90 99 01/19 1019 60 150/70 01/19 0627 97.9 72 20 130/84 98 Room Air 01/18 2153 98.2 62 18 126/88 98 Intake & Output 01/19 1600 01/19 0800 01/19 0000 Intake Total 610 200 200 Output Total 400 Balance 210 200 200 Intake, IV 250 Intake, Oral 360 200 200 Number 1 Bowel Movements Output, Urine 400 Physical Exam Other Physical Findings: He is awake and alert in no acute distress. He is afebrile. Skin reveals no rash. HEENT exam is negative. Neck is supple with no adenopathy. Lungs are clear. Heart regular rhythm with no murmur. Abdomen is soft, nontender with positive bowel sounds. Back no CVA tenderness. Extremities healed lesion on the right thigh, with no cyanosis, clubbing or edema. Neuro weakness on right plantar flexion. Last 24 Hours of Lab Results: Laboratory Tests 01/19 0835 Hematology CBC w Diff NO MAN DIFF REQ WBC (4.8 - 10.8 /CUMM) 7.3 RBC (4.70 - 6.10 /CUMM) 4.40 L Hgb (14.0 - 18.0 G/DL) 12.0 L Hct (42 - 52 %) 36.1 L MCV (80.0 - 94.0 FL) 82.0 MCH (27.0 - 31.0 PG) 27.3 MCHC (33.0 - 37.0 G/DL) 33.2 RDW (11.5 - 14.5 %) 14.4 Plt Count (130 - 400 /CUMM) 206 MPV (7.4 - 10.4 FL) 8.7 Gran % (42.2 - 75.2 %) 72.1 Lymphocytes % (20.5 - 51.1 %) 20.4 L Monocytes % (1.7 - 9.3 %) 4.4 Eosinophils % (0 - 5 %) 2.6 Basophils % (0.0 - 2.0 %) 0.5 Absolute Granulocytes (1.4 - 6.5 /CUMM) 5.3 Absolute Lymphocytes (1.2 - 3.4 /CUMM) 1.5 Absolute Monocytes (0.10 - 0.60 /CUMM) 0.3 Absolute Eosinophils (0.0 - 0.7 /CUMM) 0.2 Absolute Basophils (0.0 - 0.2 /CUMM) 0 Last 24 Hours of Michael Results: Blood cultures January 17 bottle positive for coag negative Staph Urine culture January 17 negative Blood cultures 2 January 19 pending Diagnostic Data Recent Imaging Findings: Chest x-ray January [address] of the head January 17 negative for any acute process Assessment/Plan Assessment/Plan Impression: This is a 38-year-old man with a history of active IV drug abuse, most recently on the day of admission, admitted on January 17 after he was found lying unconscious in the grass, with improvement after receiving 2 intranasal Narcans, found to be febrile, hypotensive and tachycardic, with a normal white blood cell count and with one blood culture positive for coag negative Staph. The coag negative staph presumably represents a contaminant and, therefore, should not require treatment. Though he is clearly at increased risk for endocarditis, coag negative Staph would be an unusual pathogen to cause endocarditis; therefore, particularly as only one blood culture is positive and as he appears to have defervesced prior to any antibiotics, feel that he can be followed off antibiotics. The etiology of his fever on admission is unclear but suspect it is related to his drug use. He is reportedly HIV negative but, with his active drug abuse, he should be retested. He should also be referred for treatment of his Hepatitis C. Suggestion: 1. Repeat HIV 2. GI referral for his Hepatitis C (can do as outpatient) 3. Discontinue Vancomycin and follow off antibiotics Consult Acknowledgment - Thank you for your consult request.
[2018-01-19 22:24] VITALS: BP 136/90
[2018-01-20 06:20] VITALS: BP 120/74
--- NOTE | 2018-01-20 06:28 | PN- Housestaff ---
See Addendum Subjective Follow-up For: Opioid overdose Complaints: no complaints Subjective: Patient seen and examined at bed side. Patient has no c/o, states medications are helping with withdrawal symtpoms and currently has none. Denies fever, abdominal pain, cramping, vomiting, nausea, diarrhea, tearing, headaches. restlessness Review of Systems Constitutional: Reports: see HPI. Objective Last 24 Hrs of Vital Signs/I&O Vital Signs Date Time Temp Pulse Resp B/P B/P Pulse O2 O2 Flow FiO2 Mean Ox Delivery Rate 01/20 1345 98.4 72 18 142/90 97 Room Air 01/20 0620 98.8 58 16 120/74 97 Room Air 01/19 2224 97.9 66 18 136/90 98 Room Air Intake & Output 01/20 1600 01/20 0800 01/20 0000 Intake Total 260 240 480 Output Total 400 Balance -140 240 480 Intake, Oral 260 240 480 Output, Urine 400 Physical Exam General Appearance: Alert, Oriented X3, Cooperative Skin: No Rashes, Healing wound on right thigh HEENT: Atraumatic, PERRLA, EOMI Neck: Supple, No LAD Cardiovascular: Regular Rate, Normal S1, Normal S2 Lungs: Clear to Auscultation, Normal Air Movement Abdomen: Normal Bowel Sounds, Soft, No Tenderness Neurological: Normal Gait, Normal Speech Assessment/Plan Assessment: Patient is a 38-year-old male with a past medical history of IV drug abuse anxiety and depression, brought into the hospital by EMS. Patient is unable to recall where he was transported from, or how he got there. Patient became coherent after arriving to [facility], had recieved Narcan (x2) enroute to [facility]. #Leukocytosis Elevated WBC (13.9), Elevated Temp on presentation (104.3F). Source of fever is unclear, heat stroke vs infectious. Patient has Postive blood culture for Coag. Negative Staph, history of IVDA. HIV Nonreactive Plan: - Echocardiogram for Endocarditis #Opioid Overdose given Narcan and became coherent shortly afterwards. Positive for opiates and methamphetamines. Plan: - patient seen by leather production worker today, consdering AA/NA groups, provided information - Patient seen by psych., will reasses patient - PRN Atarax, Bentyl, Clonidine, Baclofen for withdrawal symptoms #Right Foot Drop Neuro vs Vasculitis- History of Hep C, it is possible to have vasculitis secondary to cryoglobulinemia leading to right foot drop Plan: F/u cryoglobulins. #Right Thigh Ulcer present on administartion, patient has recieved treatment before. Plan: - seen by wound care- recommend moist wound care with daily Xeroform and cleansing DVT ppx: ALPS Diet: Regular Code status: Full code Problem List: 1. Opiate overdose Pain Ratin Pain Location: n/a Pain Goal: Remain pain free Pain Plan: n/a Tomorrow's Labs & Rationales: none DVT/Prophylaxis: mechanical
--- NOTE | 2018-01-20 08:16 | Cons- Wound Care ---
General Information and HPI Consulting Request Date of Consult: 01/20/18 Requested By: Mc Warren MD Reason for Consult: Right thigh ulcer present on admission History of Present Illness: 38-year-old gentleman with history of opiate abuse admitted with opiate overdose reported a right thigh ulcer present for several months without specific etiology. He denies injection site or area subject to extensive pressure. He was seen by his primary care doctor in the wound has been healing with topical steroids though no specific diagnosis was made or biopsy done. Allergies/Medications Allergies: Coded Allergies: haloperidol (From HALDOL) (MUSCLES TIGHTEN UP, HEAD GOES BACK AND CANT TALK 03/03) trazodone (NIGHT TERRORS AND BAD ANXIETY 10/23/16) Home Med List: Amitriptyline HCl 150 MG TABLET 1 TAB PO QPM PAIN (Reported) Dextroamphetamine/Amphetamine (Mydayis ER 37.5 MG Capsule) 37.5 MG CPTP.24HR 1 CAP PO QPM ADHD (Reported) Gabapentin 600 MG TABLET 1 TAB PO TID PAIN (Reported) Propranolol HCl (Propranolol HCl ER) 160 MG CAP.SA.24H 1 TAB PO AT BEDTIME BP (Reported) Past History Travel History Traveled to [place] past 21 day No Medical History Blood Transfusion Hx: No Neurological: NONE EENT: NONE Cardiovascular: hypertension Respiratory: NONE Gastrointestinal: NONE Hepatic: NONE Renal: NONE Musculoskeletal: NONE Psychiatric: anxiety, depression Endocrine: NONE Blood Disorders: NONE Cancer(s): NONE COTTON BUYER/Reproductive: NONE Surgical History Surgical History: non-contributory Family History Relations & Conditions If Any: MOTHER FHx: lung cancer Psychosocial History Where Do You Live? Home Who Do You Live With? with friends Services at Home: None Primary Language: Yoruba Smoking Status: Current Everyday Smoker Illicit Drug Use: UTD Functional Ability ADLs Independent: dressing, eating, toileting, bathing. Ambulation: independent IADLs Independent: shopping, housework, finances, food prep, telephone, transportation , medication admin. Exam & Diagnostic Data Vital Signs and I&O Vital Signs Result Date Time Pulse Ox 97 01/21 620 B/P 120/74 01/21 620 O2 Delivery Room Air 01/21 620 Temp 98.8 01/21 620 Pulse 58 01/21 620 Resp 16 01/21 620 Intake & Output 01/20 0000 /05 1600 01/19 0800 Intake Total 480 610 200 Output Total 400 Balance 480 210 200 Intake, IV 250 Intake, Oral 480 360 200 Number 1 Bowel Movements Output, Urine 400 There is an extensive area of healed ulceration measuring 12-13 cm x 3 cm within which is a small open ulcer approximately 1 x 1 cm with adherent scab there is no undermining sinus tracking erythema or exposed bone. Assessment/Plan Impression/Plan: 38-year-old with a large healing lesion over the right thigh of uncertain etiology. There is a small residual open ulcer with dry scab. Recommend moist wound care with daily Xeroform and cleansing. Complete workup for vasculitis in follow-up results. If patient fails to improve suggest formal dermatologic evaluation Consult Acknowledgment - Thank you for your consult request.
[2018-01-20 08:56] LABS: ABSOLUTE BASOPHIL COUNT 0.1 /CUMM (0.0-0.2); ABSOLUTE EOSINOPHIL COUNT 0.2 /CUMM (0.0-0.7); ABSOLUTE GRANULOCYTE CT 5.2 /CUMM (1.4-6.5); ABSOLUTE LYMPH COUNT 1.7 /CUMM (1.2-3.4); ABSOLUTE MONOCYTE COUNT 0.3 /CUMM (0.10-0.60); BASOPHIL % 0.7 % (0.0-2.0); EOSINOPHIL % 2.1 % (0-5); GRANULOCYTE % 69.9 % (42.2-75.2); HEMATOCRIT 38.2 % (42-52); MEAN CORPUSCULAR HGB 26.9 PG (27.0-31.0); MEAN CORPUSCULAR HGB CONC 32.9 G/DL (33.0-37.0); MEAN CORPUSCULAR VOLUME 81.9 FL (80.0-94.0); MEAN PLATELET VOLUME 8.6 FL (7.4-10.4); PLATELET COUNT 230 /CUMM (130-400); RBC DISTRIBUTION WIDTH 13.6 % (11.5-14.5); RED BLOOD CELL CT 4.67 /CUMM (4.70-6.10); WHITE BLOOD CELL COUNT 7.4 /CUMM (4.8-10.8)
--- NOTE | 2018-01-20 12:16 | Patient Discharge Instructions ---
Discharge Instructions General Discharge Information You were seen/treated for: Opioid overdose Watch for these problems: Fever, chest pain, shortness of breath Special Instructions: Please take all medications as directed. Please follow-up with primary care and gastroenterology. Please do not take recreational drugs. Diet Continue normal diet: Yes Activity Full Activity/No Limits: Yes Acute Coronary Syndrome Inclusion Criteria At DC or during hospital stay patient has or had the following: ACS DIAGNOSIS No Discharge Core Measures Meds if any: Prescribed or Continued at Discharge Meds if any: NOT Prescribed or Continued at Discharge Congestive Heart Failure Inclusion Criteria At DC or during hospital stay patient has or had the following: CHF DIAGNOSIS No Discharge Core Measures Meds if any: Prescribed or Continued at Discharge Meds if any: NOT Prescribed or Continued at Discharge Cerebrovascular accident Inclusion Criteria At DC or during hospital stay patient has or had the following: CVA/TIA Diagnosis No Discharge Core Measures Meds if any: Prescribed or Continued at Discharge Meds if any: NOT Prescribed or Continued at Discharge Venous thromboembolism Inclusion Criteria VTE Diagnosis No VTE Type NONE VTE Confirmed by (Test) NONE Discharge Core Measures - Per Current guidelines, there needs to be overlap - treatment for the first 5 days of Warfarin therapy. - If discharged on Warfarin prior to 5 days of - overlap therapy, the patient will need to be - assessed for post discharge needs including - *Post discharge parental anticoagulation - *Warfarin and/or parental anticoagulation education - *Follow up date to check INR post discharge At least 5 days overlap therapy as Inpatient No Meds if any: Prescribed or Continued at Discharge Note: Overlap Therapy is Warfarin and Anticoagulant Meds if any: NOT Prescribed or Continued at Discharge
[2018-01-20 13:45] VITALS: BP 142/90
--- NOTE | 2018-01-21 07:22 | ECHOCARDIOGRAM REPORT ---
MINDY MCNAIR Age: 38 : 1980 Gender: M Exam Date: 01/20/2018 15:04 Exam Location: [facility] Ht (in): 66 Wt (lb): 160 BSA: 1.85 BP: 126 / 68 Ordering Physician: Asia Woodruff MD Referring Physician: Asia Woodruff MD Technologist: Ildefonso White [facility] Room Number: 220-2 Indications: INFECTIVE ENDOCARDITIS Rhythm: Sinus Technical Quality: good FINDINGS Left Ventricle Normal left ventricular size, wall thickness and systolic function with no obvious regional wall motion abnormalities. Normal left ventricular diastolic filling pattern for age. The ejection fraction is visually estimated at 60%. Right Ventricle The right ventricle is normal in size and function. Right Atrium The right atrium is normal in size. Left Atrium The left atrium is normal in size. The interatrial septum is intact. Mitral Valve The mitral valve is normal in structure and function. There is trace mitral regurgitation. Aortic Valve Structurally normal aortic valve without significant sclerosis or stenosis. There is no aortic regurgitation. Tricuspid Valve The tricuspid valve is normal in structure and function. There is no tricuspid regurgitation. Pulmonic Valve Poorly visualized pulmonic valve. There is no pulmonic regurgitation. Pericardium Normal pericardium without effusion. No pleural effusion. Great Vessels Normal aortic root dimension. The aortic arch and great vessels are well seen and are normal. CONCLUSIONS 1. Normal EF of 60%. 2. Trace mitral regurgitation. Rahul Jackson M.D. (Electronically Signed) Final Date: 21 January 2018 07:22 MEASUREMENTS (Male / Female) Normal Values 2D ECHO LV Diastolic Diameter PLAX 4.9 cm 4.2 - 5.9 / 3.9 - 5.3 cm LV Systolic Diameter PLAX 3.0 cm 2.1 - 4.0 cm LV Fractional Shortening PLAX 38.8 % 25 - 46 % LV Ejection Fraction 2D Teich 69.0 % IVS Diastolic Thickness 1.0 cm LVPW Diastolic Thickness 1.1 cm LV Relative Wall Thickness 0.4 LVOT Diameter 2.2 cm Aortic Root Diameter 2.6 cm LA Systolic Diameter LX 3.7 cm 3.0 - 4.0 / 2.7 - 3.8 cm LV Ejection Fraction MOD BP 71.4 % >= 55 % LV Cardiac Index MOD BP 3938.1 cm/minm LV Diastolic Length 4C 8.2 cm 6.9 - 10.3 cm LV Diastolic Area 4C 36.2 cm LV Diastolic Volume MOD 4C 131.0 cm LV Ejection Fraction MOD 4C 68.7 % LV Stroke Volume MOD 4C 90.0 cm LV Cardiac Index MOD 4C 3938.1 cm/minm LV Systolic Length 4C 6.6 cm LV Systolic Area 4C 17.9 cm LV Systolic Volume MOD 4C 41.0 cm LV Ejection Fraction MOD 2C 68.0 % LV Cardiac Index MOD 2C 3062.9 cm/minm LV Diastolic Volume 4C AL 135.5 cm 85 - 139 / 69 - 109 cm LV Systolic Volume 4C AL 41.3 cm LV Ejection Fraction 4C AL 69.5 % LV Stroke Volume 4C AL 94.2 cm LV Cardiac Index 4C AL 4123.7 cm/minm LV Ejection Fraction 2C AL 69.9 % LV Cardiac Index 2C AL 3200.1 cm/minm LA Volume 47.0 cm 18 - 58 / 22 - 52 cm Ascending Aorta Diameter 3.1 cm DOPPLER AV Peak Velocity 141.0 cm/s AV Peak Gradient 8.0 mmHg LVOT Peak Velocity 112.0 cm/s LVOT Peak Gradient 5.0 mmHg AV Area Cont Eq pk 3.0 cm Mitral E Point Velocity 72.6 cm/s Mitral A Point Velocity 49.9 cm/s Mitral E to A Ratio 1.5 MV Deceleration Time 141.0 ms LV E' Lateral Velocity 16.0 cm/s Mitral E to LV E' Lateral Ratio 4.5 LV E' Septal Velocity 11.5 cm/s Mitral E to LV E' Septal Ratio 6.3
== END 2018-01-20 19:45 | DRG 816 ==
LOC: ERH 19:15 → 2NA 01-18 00:25 → ERHI 01-18 00:25 → ENRESERV 01-18 02:03 → 2NA 01-18 02:38
PROVIDERS: Hospitalist; Internal Medicine; Physician Assistant
DX: T40.1X1A Poisoning by heroin, accidental (unintentional), initial encounter (principal); T40.4X1A Poisoning by other synthetic narcotics, accidental (unintentional), initial encounter; I10 Essential (primary) hypertension; F19.10 Other psychoactive substance abuse, uncomplicated; F41.9 Anxiety disorder, unspecified; F32.9 Major depressive disorder, single episode, unspecified; T67.0XXA Heatstroke and sunstroke, initial encounter; M21.371 Foot drop, right foot; E87.2 Acidosis; E86.0 Dehydration; I95.9 Hypotension, unspecified; F11.20 Opioid dependence, uncomplicated; B18.2 Chronic viral hepatitis C; Z88.8 Allergy status to other drugs, medicaments and biological substances; D72.829 Elevated white blood cell count, unspecified; L97.119 Non-pressure chronic ulcer of right thigh with unspecified severity
CPT/HCPCS: 2NASP; 36415; 36592; 71045; 80307; 81001; 82436; 82595; 87040; 87071; 87086; 87147; 87389; 93005; 93010; 93306; G0480; J0131; J1650; J1885; J2405; J3370; J7040